=== PATIENT | female | born 1965 | race Asian ===

== ENCOUNTER → 2016-07-14 | Outpatient (CLI) | payer OTHER | LOC: BRMIMAGING 10:56 | DX: Z12.31 Encounter for screening mammogram for malignant neoplasm of breast (principal) | CPT/HCPCS: G0202 ==

== ENCOUNTER → 2016-08-30 | Outpatient (CLI) | payer OTHER | LOC: BRMIMAGING 10:32 | PROVIDERS: ATTEND Family Medicine | DX: D42.1 Neoplasm of uncertain behavior of spinal meninges (principal) | CPT/HCPCS: 76641-PO ==

== ENCOUNTER → 2017-07-15 | Outpatient (CLI) | payer OTHER | LOC: BRMIMAGING 10:26 | PROVIDERS: ATTEND Family Medicine | DX: N63.10 Unspecified lump in the right breast, unspecified quadrant (principal) | CPT/HCPCS: 76641-PO ==

== ENCOUNTER → 2018-07-26 | Outpatient (CLI) | payer OTHER | LOC: BRMIMAGING 08:03 | PROVIDERS: ATTEND Family Medicine | DX: Z12.31 Encounter for screening mammogram for malignant neoplasm of breast (principal) ==